=== PATIENT | male | born 1985 | race Caucasian/White ===

== ENCOUNTER 2020-01-31 07:11 | Emergency (ER) | payer SELFPAY ==
[2020-01-31 07:31] VITALS: BP 121/77
--- NOTE | 2020-01-31 08:00 | EKG REPORT ---
SEVERITY:- NORMAL ECG - SINUS RHYTHM : Confirmed by: Amanda Brock 31-Jan-2020 08:00:15
== END 2020-01-31 12:22 | disposition left against medical advice (07) ==
LOC: ER 07:11
DX: Z53.21 Procedure and treatment not carried out due to patient leaving prior to being seen by health care provider (principal)
CPT/HCPCS: 93005; 93010